=== PATIENT | female | born 1995 | race Two or more races ===

== ENCOUNTER 2021-03-20 17:50 | Emergency (ER) | payer MEDICAID, OTHER ==
[~2021-03-20] VITALS: Ht 160 cm; Wt 47.2 kg
[2021-03-21 04:51] VITALS: BP 134/84
== END 2021-03-21 01:58 | disposition home or self-care (01) ==
LOC: ER 17:50
DX: O20.0 Threatened abortion (principal); Z3A.09 9 weeks gestation of pregnancy
CPT/HCPCS: 36415; 76801; 84702